=== PATIENT | female | born 1935 | race Two or more races ===

== ENCOUNTER 2021-11-06 05:42 | Day surgery (SDC) | payer OTHER ==
[~2021-11-06] VITALS: Ht 147.3 cm; Wt 49.4 kg
[~2021-11-06 05:42] MED LIST: GABAPENT PO; RESTORIL15 M1 PO; ZOLOFT100 MG PO
[2021-11-06] MEDS ORDERED: NEURONTIN600 M1 PO (09:25)
[2021-11-06] MEDS ORDERED: POLY119PG PO (09:26)
== END 2021-11-06 13:00 | disposition home or self-care (01) ==
LOC: CIR.AMB 05:42
PROVIDERS: ATTEND Surgery
DX: K40.90 Unilateral inguinal hernia, without obstruction or gangrene, not specified as recurrent (principal); Z88.8 Allergy status to other drugs, medicaments and biological substances; Z88.2 Allergy status to sulfonamides; Z88.6 Allergy status to analgesic agent; I10 Essential (primary) hypertension; K21.9 Gastro-esophageal reflux disease without esophagitis; Z20.822 Contact with and (suspected) exposure to COVID-19; D17.39 Benign lipomatous neoplasm of skin and subcutaneous tissue of other sites